=== PATIENT | male | born 1955 ===

== ENCOUNTER 2022-05-22 12:48 | Observation (INO) ==
[2022-05-22 15:20] LABS: ABS Basophils 0.1 10^3/ul (0-0.2); ABS Eosinophils 0.4 10^3/ul (0-0.6); ABS Lymphocytes 1.8 10^3/ul (1.0-4.8); ABS Monocytes 0.8 10^3/ul (0-0.8); ABS Neutrophils 8.7 10^3/ul (1.5-7.7); Eosinophil % 3.7 %; Hematocrit 40 % (42-52); Hemoglobin 13.2 g/dL (14.0-18.0); Lymphocyte % 15.1 %; Mean Corpuscular HGB Conc 33 g/dL (31-36); Mean Corpuscular Hemoglobin 29 pg (27-31); Mean Corpuscular Volume 89 fL (80-94); Platelet Count 393 10^3/uL (150-450); Red Cell Distribution Width 13 % (10-15); White Blood Count 11.9 10^3/uL (3.5-10.8)
[2022-05-22 15:44] LABS: Activated Partial Thrombo Time 35.7 seconds (26.0-38.0); INR 1.06 (0.89-1.11)
[2022-05-22 15:53] LABS: Calcium 9.2 mg/dL (8.6-10.3); Globulin 3.1 g/dL (2-4); Potassium 3.5 mmol/L (3.5-5.0); Total Protein 7.1 g/dL (6.4-8.9); eGFR CKD-EPI 62.3 (>60)
[2022-05-22 15:54] LABS: Albumin/Globulin Ratio 1.3 (1-3); C Reactive Protein 150.12 mg/L (<8.01); Total Bilirubin 0.7 mg/dL (0.2-1.0)
[2022-05-22] MEDS ORDERED: Iodixanol (CONTRAST) 320 MG/ML 100 ML SDV IV ONE (16:17)
[2022-05-22] MEDS ORDERED: Clindamycin 900 MG/D5W BAG 900 MG/50 ML BAG IVPB ONE (16:27)
[2022-05-22 17:36] LABS: High Sensitivity Troponin 1 Hr 4 pg/mL (<20)
[2022-05-22] MEDS ORDERED: Ondansetron 4 mg VIAL 2 MG/ML 2 ml VIAL IV PRN (18:04)
[2022-05-22] MEDS ORDERED: Piperacillin/Tazobac ADVAN 3.375 GM in NS 0.9% 100 ml BAG 100 ML IV ONE (18:04)
[2022-05-22] MEDS ORDERED: Vancomycin 1,000 MG in NS 0.9% 250 ml 250 ML IVPB ONE (18:04)
[2022-05-22] MEDS ORDERED: Lidocaine 1% w EPI 1:100,000 MDV 20 ML VIAL ONE (18:57)
[2022-05-22] MEDS ORDERED: Vancomycin per Pharmacy 1 EA NOTE FOLLOW UP SCH (19:00)
[2022-05-22] MEDS ORDERED: Zosyn per Pharmacy NOTE FOLLOW UP SCH (19:00)
[2022-05-22] MEDS ORDERED: Vancomycin 1,750 MG in NS 0.9% 500 ml BAG 500 ML IVPB ONE (20:00)
[2022-05-22] MEDS ORDERED: ZOSYN 3.375 GM Q8H per EXTENDED INFUSION IV SCH (22:30)
[2022-05-22 22:56] VITALS: BP 146/108
== END 2022-05-22 21:10 | disposition home or self-care (01) ==
LOC: EDHOLD 12:48 → ED 12:48 → EDHOLD 21:06
PROVIDERS: ADMIT Internal Medicine; ATTEND Internal Medicine